=== PATIENT | female | born 1950 | race African-American/Black ===

== ENCOUNTER 2016-08-31 15:44 | Inpatient (IN) | payer MEDICARE ==
[2016-08-31] MEDS ORDERED: IPRATROPIUM-ALBUTEROL 3 ML NEB INHALATION STA (17:04)
--- NOTE | 2016-08-31 17:15 | ED ---
General Adult HPI - General Source: patient, RN notes reviewed Mode of arrival: ambulatory Limitations: no limitations <Pattie Waller - Last Filed: 08/31/16 19:53> <John Adams - Last Filed: 09/01/16 01:36> - General Chief complaint: Upper Respiratory Infection Stated complaint: Cough Time Seen by Provider: 08/31/16 16:57 - History of Present Illness Initial comments: This is a 66-year-old female presents with cough and congestion 4 days. Patient states she's had a productive cough of white-yellow sputum. Patient states she lives in a nursing home apartment center and many residents have been sick with similar symptoms. Patient also complains of some shortness of breath especially with exertion. Patient states she was diagnosed with mild asthma but is not currently on any medications for this. Patient states she only has symptoms when she gets sick. Patient states about 2 days ago she felt like she had a fever but this was subjective. Patient has not tried any over- the-counter remedies. Patient states 2 nights ago she also had a headache but this has not recurred. Patient also complains of some sinus congestion and pressure. Patient denies any recent chest pain, abdominal pain, nausea/vomiting /diarrhea, back pain, numbness, tingling, hematuria, or visual changes, or any other complaints. Patient's past medical history significant for hypertension and removal of the left lung. Patient states there was a nodule on her left lung years ago but patient does not recall the reason for left lung removal. (Pattie Waller) - Related Data Home Medications Medication Instructions Recorded Confirmed Atenolol [Tenormin] 12.5 mg PO DAILY 08/31/16 08/31/16 Lisinopril-Hctz 20-25 mg 1 tab PO DAILY 08/31/16 08/31/16 [Zestoretic 20-25] Potassium Chloride [Klor-Con 10] 10 meq PO DAILY 08/31/16 08/31/16 Previous Rx's Medication Instructions Recorded Albuterol Inhaler [Ventolin Hfa 1 - 2 puff INHALATION Q6HR #1 08/31/16 Inhaler] inhaler Allergies Allergy/AdvReac Type Severity Reaction Status Date / Time No Known Allergies Allergy Verified 08/31/16 19:41 Review of Systems ROS Other: All systems not noted in ROS Statement are negative. <Pattie Waller - Last Filed: 08/31/16 19:53> ROS Other: All systems not noted in ROS Statement are negative. <John Adams - Last Filed: 09/01/16 01:36> ROS Statement: Those systems with pertinent positive or pertinent negative responses have been documented in the HPI. (Pattie Waller) (John Adams) Past Medical History Past Medical History: Asthma History of Any Multi-Drug Resistant Organisms: None Reported Additional Past Surgical History / Comment(s): Left lung removal, cataract surgery Past Psychological History: No Psychological Hx Reported Smoking Status: Former smoker Past Alcohol Use History: None Reported Past Drug Use History: None Reported <Pattie Waller - Last Filed: 08/31/16 19:53> General Exam Limitations: no limitations <Pattie Waller - Last Filed: 08/31/16 19:53> <John Adams - Last Filed: 09/01/16 01:36> - General Exam Comments Initial Comments: General: The patient is awake and alert, in no distress, and does not appear acutely ill. Eye: Pupils are equal, round and reactive to light, extra-ocular movements are intact. No nystagmus. There is normal conjunctiva bilaterally. No signs of icterus. Nose: No tenderness of maxillary or frontal sinuses. Mouth and throat: There are moist mucous membranes and no oral lesions. Neck: The neck is supple, there is no tenderness or JVD. Cardiovascular: There is a regular rate and rhythm. No murmur, rub or gallop is appreciated. Respiratory: Faint wheezes heard on right side, patient with left side lung removed, respirations are non-labored. No stridor, rales, or rhonchi. Musculoskeletal: Normal ROM, no tenderness. Strength 5/5. Sensation intact. Radial pulses equal bilaterally 2+. Neurological: A&O x 3. CN II-XII intact, There are no obvious motor or sensory deficits. Coordination appears grossly intact. Speech is normal. Skin: Skin is warm and dry and no rashes or lesions are noted. Psychiatric: Cooperative, appropriate mood & affect, normal judgment. (Pattie Waller) Medical Decision Making - Lab Data Result diagrams: 08/31/16 19:07 08/31/16 19:07 <Pattie Waller - Last Filed: 08/31/16 19:53> - Lab Data Result diagrams: 08/31/16 19:07 08/31/16 19:07 <John Adams - Last Filed: 09/01/16 01:36> - Medical Decision Making This is a 66-year-old female presents with cough and congestion. On physical exam there were wheezes heard on the right side lung mccord. Patient with left- sided lung removed. Patient does not recall the reason for left-sided lung removal. Patient is afebrile in the EC. Patient is in no acute respiratory distress. Chest x-ray is done and reviewed showing: There is an increasing interstitial infiltrate in the right lung compared to last exam. There is more infiltrate in the right upper lobe. This could relate to developing bronchopneumonia. Reported by Dr. Duke. Patient was given a DuoNeb treatment in the EC with symptom improvement. I discussed patient with Dr. Urbano who also examined the patient. Discussed with patient admission to the hospital for IV antibiotics. Patient was receptive to this plan. Blood cultures, lactic acid, UA, CBC and CMP were ordered. Blood cultures are pending. I discussed this case with attending physician Dr. Adams who agrees with plan as stated above. Patient will be admitted as an inpatient to Dr. Corcoran. (Pattie Waller) I saw this patient in conjunction with the physician hair assistant. I performed independent history and physical exam. Agree with case management. (John Adams) - Lab Data Lab Results 08/31/16 08/31/16 08/31/16 Range/Units 19:07 19:07 19:07 WBC 5.4 (3.8-10.6) k/uL RBC 4.84 (3.80-5.40) m/uL Hgb 14.5 (11.4-16.0) gm/dL Hct 45.1 (34.0-46.0) % MCV 93.3 (80.0-100.0) fL MCH 30.0 (25.0-35.0) pg MCHC 32.2 (31.0-37.0) g/dL RDW 14.1 (11.5-15.5) % Plt Count 103 L (150-450) k/uL Neutrophils % 68 % Lymphocytes % 18 % Monocytes % 6 % Eosinophils % 6 % Basophils % 1 % Neutrophils # 3.7 (1.3-7.7) k/uL Lymphocytes # 1.0 (1.0-4.8) k/uL Monocytes # 0.3 (0-1.0) k/uL Eosinophils # 0.3 (0-0.7) k/uL Basophils # 0.1 (0-0.2) k/uL Sodium 141 (137-145) mmol/L Potassium 3.6 (3.5-5.1) mmol/L Chloride 102 (98-107) mmol/L Carbon Dioxide 31 H (22-30) mmol/L Anion Gap 8 mmol/L BUN 9 (7-17) mg/dL Creatinine 0.80 (0.52-1.04) mg/dL Est GFR (MDRD) Af Amer >60 (>60 ml/min/1.73 sqM) Est GFR (MDRD) Non-Af >60 (>60 ml/min/1.73 sqM) Glucose 100 H (74-99) mg/dL Plasma Lactic Acid Ryan 1.3 (0.7-2.0) mmol/L Calcium 9.3 (8.4-10.2) mg/dL Total Bilirubin 1.4 H (0.2-1.3) mg/dL AST 52 H (14-36) U/L ALT 40 (9-52) U/L Alkaline Phosphatase 95 (38-126) U/L Total Protein 7.9 (6.3-8.2) g/dL Albumin 3.8 (3.5-5.0) g/dL Urine Color Urine Appearance (Clear) Urine pH (5.0-8.0) Ur Specific [place] (1.001-1.035) Urine Protein (Negative) Urine Glucose (UA) (Negative) Urine Ketones (Negative) Urine Blood (Negative) Urine Nitrate (Negative) Urine Bilirubin (Negative) Urine Urobilinogen (<2.0) mg/dL Ur Leukocyte Esterase (Negative) Urine RBC (0-5) /hpf Urine WBC (0-5) /hpf Ur Squamous Epith Cells (0-4) /hpf Urine Bacteria (None) /hpf Urine Mucus (None) /hpf 08/31/ Range/Units 19:07 WBC (3.8-10.6) k/uL RBC (3.80-5.40) m/uL Hgb (11.4-16.0) gm/dL Hct (34.0-46.0) % MCV (80.0-100.0) fL MCH (25.0-35.0) pg MCHC (31.0-37.0) g/dL RDW (11.5-15.5) % Plt Count (150-450) k/uL Neutrophils % % Lymphocytes % % Monocytes % % Eosinophils % % Basophils % % Neutrophils # (1.3-7.7) k/uL Lymphocytes # (1.0-4.8) k/uL Monocytes # (0-1.0) k/uL Eosinophils # (0-0.7) k/uL Basophils # (0-0.2) k/uL Sodium (137-145) mmol/L Potassium (3.5-5.1) mmol/L Chloride (98-107) mmol/L Carbon Dioxide (22-30) mmol/L Anion Gap mmol/L BUN (7-17) mg/dL Creatinine (0.52-1.04) mg/dL Est GFR (MDRD) Af Amer (>60 ml/min/1.73 sqM) Est GFR (MDRD) Non-Af (>60 ml/min/1.73 sqM) Glucose (74-99) mg/dL Plasma Lactic Acid Ryan (0.7-2.0) mmol/L Calcium (8.4-10.2) mg/dL Total Bilirubin (0.2-1.3) mg/dL AST (14-36) U/L ALT (9-52) U/L Alkaline Phosphatase (38-126) U/L Total Protein (6.3-8.2) g/dL Albumin (3.5-5.0) g/dL Urine Color Yellow Urine Appearance Clear (Clear) Urine pH 6.5 (5.0-8.0) Ur Specific [place] 1.004 (1.001-1.035) Urine Protein Negative (Negative) Urine Glucose (UA) Negative (Negative) Urine Ketones Negative (Negative) Urine Blood Small H (Negative) Urine Nitrate Negative (Negative) Urine Bilirubin Negative (Negative) Urine Urobilinogen 2.0 (<2.0) mg/dL Ur Leukocyte Esterase Small H (Negative) Urine RBC 3 (0-5) /hpf Urine WBC 2 (0-5) /hpf Ur Squamous Epith Cells 4 (0-4) /hpf Urine Bacteria Rare H (None) /hpf Urine Mucus Rare H (None) /hpf (John Adams) Disposition Decision Time: 19:53 <Pattie Waller - Last Filed: 08/31/16 19:53> <John Adams - Last Filed: 09/01/16 01:36> Clinical Impression: Pneumonia Disposition: ADMITTED IP TO THIS HOSP Condition: Good
--- NOTE | 2016-08-31 17:55 | XR ---
EXAMINATION TYPE: XR chest 2V DATE OF EXAM: 08/31/2016 5:20 PM COMPARISON: 08/21/2011 HISTORY: Productive cough and congestion TECHNIQUE: Frontal and lateral views of the chest are obtained. FINDINGS: There is apparent pneumonectomy on the left side heart and mediastinum are shifted to the left. There is coarse infiltrate in the right lung. There is no right pleural effusion. IMPRESSION: There is increasing interstitial filtrate in the right lung compared to last exam. There is more infiltrate in the right upper lobe. This could relate to developing bronchopneumonia.
[2016-08-31] MEDS ORDERED: LEVOFLOXACIN 750 MG TAB PO STA (18:05)
[2016-08-31] MEDS ORDERED: LEVOFLOXACIN 750MG-D5W PMX 750 MG in DEXTROSE/WATER 1 150ML.BAG IVPB STA (18:53)
[2016-08-31] MEDS ORDERED: NALOXONE 0.4 MG/ML 1 ML VIAL IV PRN (19:00)
[2016-08-31] MEDS ORDERED: IBUPROFEN 400 MG TAB PO PRN (19:00)
[2016-08-31] MEDS ORDERED: HYDROmorphone 1 MG/ML 1 ML SYRINGE IV PRN (19:00)
[2016-08-31] MEDS ORDERED: HYDROcodone/APAP 5-325MG 1 EACH TAB PO PRN (19:00)
[2016-08-31] MEDS ORDERED: ACETAMINOPHEN TAB 325 MG TAB PO PRN (19:00)
[2016-08-31 19:22] LABS: Basophils # (A) 0.1 k/uL (0-0.2); Basophils % (A) 1 %; CH 31.5; CHCM 33.9; Eosinophils # (A) 0.3 k/uL (0-0.7); Eosinophils % (A) 6 %; HCT 45.1 % (34.0-46.0); HDW 2.98; HGB 14.5 gm/dL (11.4-16.0); Luc # (Auto) 0.09; Luc % (Auto) 2; Lymphocytes % (A) 18 %; MCHC 32.2 g/dL (31.0-37.0); MCV 93.3 fL (80.0-100.0); Mean Platelet Volume 7.7; Monocytes # (A) 0.3 k/uL (0-1.0); Monocytes % (A) 6 %; Neutrophils # (A) 3.7 k/uL (1.3-7.7); Neutrophils % (A) 68 %; RBC 4.84 m/uL (3.80-5.40); RDW 14.1 % (11.5-15.5); WBC 5.4 k/uL (3.8-10.6); WBC (Perox) 5.23
[2016-08-31 19:31] LABS: ALT 40 U/L (9-52); AST 52 U/L (14-36); Alkaline Phosphatase 95 U/L (38-126); Anion Gap 8 mmol/L; Blood Urea Nitrogen 9 mg/dL (7-17); Calcium 9.3 mg/dL (8.4-10.2); Carbon Dioxide 31 mmol/L (22-30); Chloride 102 mmol/L (98-107); Glucose 100 mg/dL (74-99); Non-African American GFR(MDRD) >60 (>60 ml/min/1.73 sqM); Potassium 3.6 mmol/L (3.5-5.1); Sodium 141 mmol/L (137-145); Total Bilirubin 1.4 mg/dL (0.2-1.3); Total Protein 7.9 g/dL (6.3-8.2)
[2016-08-31 19:32] LABS: Appearance,Urine Clear (Clear); Bacteria,Urine Rare /hpf; Bilirubin,Urine Negative (Negative); Glucose,Urine (UA) Negative (Negative); Ketones,Urine Negative (Negative); Leukocyte Esterase,Urine Small (Negative); Mucus,Urine Rare /hpf; Nitrite,Urine Negative (Negative); PH, Urine 6.5 (5.0-8.0); Particle Count 920; Protein,Urine Negative (Negative); RBC,Urine 3 /hpf (0-5); Specific Gravity,Urine 1.004 (1.001-1.035); Squamous Epithelial Cell,Urine 4 /hpf (0-4); UA Billing (MACRO vs. MICRO) MICRO; WBC,Urine 2 /hpf (0-5)
[2016-08-31] MEDS: LEVOFLOXACIN 750MG-D5W PMX 750 MG in DEXTROSE/WATER 1 150ML.BAG IVPB SCH (19:44)
[2016-08-31] MEDS: SODIUM CHLORIDE 0.9% 1,000 ML IV SCH (19:44)
[2016-08-31 22:18] VITALS: BMI 37.4
[2016-09-01 08:02] LABS: ALT 47 U/L (9-52); AST 50 U/L (14-36); Alkaline Phosphatase 88 U/L (38-126); Anion Gap 8 mmol/L; Basophils % (A) 1 %; Blood Urea Nitrogen 10 mg/dL (7-17); CH 30.6; CHCM 33.2; Calcium 8.8 mg/dL (8.4-10.2); Carbon Dioxide 30 mmol/L (22-30); Chloride 106 mmol/L (98-107); Eosinophils # (A) 0.3 k/uL (0-0.7); Eosinophils % (A) 6 %; Glucose 137 mg/dL (74-99); HCT 41.3 % (34.0-46.0); HDW 2.97; HGB 13.6 gm/dL (11.4-16.0); Luc # (Auto) 0.12; Luc % (Auto) 3; Lymphocytes # (A) 0.9 k/uL (1.0-4.8); Lymphocytes % (A) 19 %; MCH 30.4 pg (25.0-35.0); MCHC 32.9 g/dL (31.0-37.0); MCV 92.4 fL (80.0-100.0); Mean Platelet Volume 7.3; Monocytes # (A) 0.2 k/uL (0-1.0); Monocytes % (A) 5 %; Neutrophils # (A) 3.1 k/uL (1.3-7.7); Neutrophils % (A) 67 %; Non-African American GFR(MDRD) >60 (>60 ml/min/1.73 sqM); Potassium 3.7 mmol/L (3.5-5.1); RBC 4.47 m/uL (3.80-5.40); RDW 13.8 % (11.5-15.5); Sodium 144 mmol/L (137-145); Total Bilirubin 1.5 mg/dL (0.2-1.3); Total Protein 7.3 g/dL (6.3-8.2); WBC 4.6 k/uL (3.8-10.6); WBC (Perox) 5.03
[2016-09-01] MEDS: LISINOPRIL-HCTZ 20-25 MG 1 EACH TAB PO SCH (08:24)
[2016-09-01] MEDS: POTASSIUM CHLORIDE ER 10 MEQ TAB.ER.PRT PO SCH (08:24)
[2016-09-01] MEDS: ATENOLOL 12.5 MG TAB PO SCH (08:24)
[2016-09-01] MEDS: LEVOFLOXACIN 750MG-D5W PMX 750 MG in DEXTROSE/WATER 1 150ML.BAG IVPB SCH (08:27)
[2016-09-01 10:51] LABS: Manual Review Performed; RBC Morphology Normal
--- NOTE | 2016-09-01 13:54 | P.CNPUL ---
History of Present Illness Consult date: 09/01/16 Requesting physician: Franki Corcoran Reason for consult: other (Pneumonia) Chief complaint: Cough and shortness of breath History of present illness: This is a 66-year-old with history of lung cancer, previous left-sided pneumonectomy over 20 years ago. And this was done by Dr. Malloy/retired thoracic surgeon. Patient is also known to have history of hypertension, COPD, presented to the emergency room with 4 days history of cough and congestion. Cough is described as productive with yellowish and sometimes whitish phlegm. Patient felt that she may have picked up this infection from other senior citizens living in the same apartment center who had similar symptoms. Patient was also complaining of shortness of breath, and upon presentation to the ER patient had abnormal chest x-rays showing some nodular infiltrate in the right lung and clearly she had a previous left-sided pneumonectomy. Her chest x-ray compared to previous x-ray few years back, clearly the findings in the right lung are worrisome for possible pneumonia. Hence the patient was admitted, placed on antibiotics, and this consult was initiated. Other symptoms included intermittent headaches, congestion over the sinuses, but she had no fever no chills no chest pain no nausea no vomiting no abdominal pain no dysuria frequency. Urgency or hematuria. Review of Systems 12 point review of systems were obtained, please refer to pertinent positives and negatives in HPI Past Medical History Past Medical History: Asthma, COPD History of Any Multi-Drug Resistant Organisms: None Reported Additional Past Surgical History / Comment(s): Left lung removal, cataract surgery Past Anesthesia/Blood Transfusion Reactions: No Reported Reaction Past Psychological History: No Psychological Hx Reported Smoking Status: Former smoker Past Alcohol Use History: None Reported Past Drug Use History: None Reported - Past Family History Father Family Medical History: Hypertension Additional Family Medical History / Comment(s): pt states father had heart problems but unsure of what exactly, ETOH, cirrhosis Mother Family Medical History: Hypertension Medications and Allergies Home Medications Medication Instructions Recorded Confirmed Type Atenolol [Tenormin] 12.5 mg PO DAILY 08/31/16 08/31/16 History Lisinopril-Hctz 20-25 mg 1 tab PO DAILY 08/31/16 08/31/16 History [Zestoretic 20-25] Potassium Chloride [Klor-Con 10] 10 meq PO DAILY 08/31/16 08/31/16 History Allergies Allergy/AdvReac Type Severity Reaction Status Date / Time No Known Allergies Allergy Verified 08/31/16 19:41 Physical Exam Vitals: Vital Signs Temp Pulse Pulse Resp BP BP Pulse Ox 09/01/16 08:00 69 18 09/01/16 07:00 69 18 124/62 98 08/31/16 22:02 98.3 F 78 18 136/64 99 08/31/16 19:47 98.0 F 70 18 144/65 97 Intake and Output 08/31/16 09/01/16 09/01/16 22:59 06:59 14:59 Intake Total 280 240 Balance 280 240 Intake: IV 80 Sodium Chloride 0.9% 1, 80 000 ml @ 20 mls/hr IV . Q24H GUAD[facility]UPE Rx#:[id number] Oral 200 240 Other: Voiding Method Toilet Toilet # Voids 1 2 Weight 99 kg eneral: The patient is awake and alert, in no distress, and does not appear acutely ill. Eye: Pupils are equal, round and reactive to light, extra-ocular movements are intact. No nystagmus. There is normal conjunctiva bilaterally. No signs of icterus. Nose: No tenderness of maxillary or frontal sinuses. Mouth and throat: There are moist mucous membranes and no oral lesions. Neck: The neck is supple, there is no tenderness or JVD. Cardiovascular: There is a regular rate and rhythm. No murmur, rub or gallop is appreciated. Respiratory: Faint wheezes heard on right side, patient with left side lung removed, respirations are non-labored. No stridor, rales, or rhonchi. Musculoskeletal: Normal ROM, no tenderness. Strength 5/5. Sensation intact. Radial pulses equal bilaterally 2+. Neurological: A&O x 3. CN II-XII intact, There are no obvious motor or sensory deficits. Coordination appears grossly intact. Speech is normal. Skin: Skin is warm and dry and no rashes or lesions are noted. Psychiatric: Cooperative, appropriate mood & affect, normal judgment. Results - Laboratory Findings CBC and BMP: 09/01/16 06:52 09/01/16 06:52 Abnormal lab findings: Abnormal Labs 09/01/16 09/01/16 06:52 06:52 Plt Count 95 L Lymphocytes # 0.9 L Glucose 137 H Total Bilirubin 1.5 H AST 50 H - Diagnostic Findings Chest x-ray: image reviewed (Right sided interstitial infiltrate is noted, mostly involving the right upper lobe, consistent with bronchopneumonia.) Assessment and Plan Plan: Acute community-acquired pneumonia in a patient with history of COPD, it is most likely gram-negative infection. Acute exacerbation of underlying COPD secondary to pneumonia History of lung cancer and previous left sided pneumonectomy History of essential hypertension Recommendation: Continue present course of antibiotics and/Levaquin, continue bronchodilators, I will recommend a course of Medrol Dosepak for her COPD symptoms, repeat chest x-ray in a.m., and the patient looks well, chest x-ray not showing any worsening, consider discharge planning in a.m. Time with Patient: Greater than 30
[2016-09-01] MEDS: methylPREDNISolone 4 MG TAB PO SCH (15:29)
[2016-09-02] MEDS: SODIUM CHLORIDE 0.9% 1,000 ML IV SCH ×2 (04:59→07:54)
[2016-09-02 07:46] VITALS: BP 131/66; PULSE 60; RESP 18; TEMP 97
[2016-09-02] MEDS: POTASSIUM CHLORIDE ER 10 MEQ TAB.ER.PRT PO SCH (07:53)
[2016-09-02] MEDS: ATENOLOL 12.5 MG TAB PO SCH (07:53)
[2016-09-02] MEDS: LISINOPRIL-HCTZ 20-25 MG 1 EACH TAB PO SCH (07:53)
[2016-09-02] MEDS: methylPREDNISolone 4 MG TAB PO SCH (07:53)
--- NOTE | 2016-09-02 07:55 | XR ---
EXAMINATION TYPE: XR chest 1V portable DATE OF EXAM: 09/02/2016 6:45 AM Comparison: 08/31/2016 Clinical History: 66-year-old female pneumonia, history of lung cancer and left-sided surgery in the past. Findings: There is leftward cardiomediastinal shift suspected to be on the basis of prior left-sided pneumonect garth. Diffuse interstitial densities on the right with increased peripheral right basilar opacity. Impression: New/worsening right basilar infiltrate. Pneumonia not excluded. Suspect prior left pneumonectomy.
--- NOTE | 2016-09-02 10:39 | HP ---
DATE OF ADMISSION: DATE OF SERVICE: 09/01/2016 CHIEF COMPLAINT: Shortness of breath and fever. This is a 66-year-old female who presented to hospital with worsening shortness of breath and fever and chills. The patient states it was a high fever but not sure how high at home. The patient was having chills and having productive cough for yellowish, stated today starting to be greenish. No blood noticed in the sputum. The patient stated that she is having generalized weakness. Positive for sick contact. Patient with history of left-sided pneumonectomy over [address] Malloy who is a retired thoracic surgeon in the early . The patient states that at that time she had possibly lung cancer but that was small size and required no chemo or radiation at that time and they told her that treatment was completed by doing the resection. Patient is alert and oriented x3, saying that she is at least 25 to 50% improved since admission. No major events reported by nursing staff. Currently denying chest pain, nausea, vomiting, abdominal pain, dizziness, ( ) or blurry vision. REVIEW OF SYSTEMS: All 14 systems reviewed and negative except as above. PAST MEDICAL HISTORY: 1. Lung cancer. 2. Hypertension. 3. Cataract surgery. 4. Left lung pneumonectomy. SOCIAL HISTORY: Patient former smoker, quit a long time ago. No history of alcohol or drug abuse. HOME MEDICATIONS: Atenolol 12.5 mg p.o. daily, lisinopril, Hypochlorothiazide on p.o. daily, potassium chloride p.o. daily. ALLERGIES: No known drug allergies. FAMILY HISTORY: Reviewed and negative. PHYSICAL EXAMINATION: VITAL SIGNS: Blood pressure 134/62, temperature is 98.3, heart rate of 69, respiratory rate 18, sating 98% on room air. GENERAL: Appearing stated age, in no acute distress. NECK: Supple, no masses. No thyromegaly. HEART: Normal S1, S2. No murmur, rubs, or gallops. LUNGS: Decreased air entry on the left side. No wheezing appreciated on physical examination. NEURO: Alert and oriented x3 and relaxed mood and affect. Cranial nerves II through XII intact. Normal deep tendon reflexes and sensation. SKIN: No new rash. PSYCH: Alert and oriented, x3. Imaging and labs: Her CBC showed low platelets at 95, normal otherwise. Chem-7 showed glucose at 137, normal otherwise. AST slightly elevated at 50. Chest x-ray showed right-sided interstitial infiltrates also involving the right upper lobe consistent with bronchopneumonia. ASSESSMENT AND PLAN: 1. Fever and chills with productive cough along with chest x-ray findings representing community-acquired pneumonia. The patient is a high risk patient given the history of left pneumonectomy and functioning with one lung, I would like to keep the patient in the hospital, consider treating her with IV antibiotics until the patient is at least 80% back to baseline. I would like to consult pulmonary and follow-up with their recommendation regarding treatment plan. 2. Generalized weakness related to the above. 3. Dehydration. We will continue with gentle hydration, encourage p.o. intake. Likely related to fever and pneumonia. 4. History of lung cancer, status post pneumonectomy, patient in remission. No chemo or radiation in the past, 5. Hypertension, under good control. We will continue the patient on her home medication. 6. Discharge planning ( ) progress. Will repeat the chest x-ray in the morning. Consider discharging patient home. 7. Thrombocytopenia, mild and we will repeat CBC in the morning. Plan discussed with Dr. Carolina at the bedside.
--- NOTE | 2016-09-02 14:14 | P.PN ---
Subjective Principal diagnosis: Acute right-sided pneumonia, community-acquired This is a 66-year-old with history of lung cancer, previous left-sided pneumonectomy over 20 years ago. And this was done by Dr. Malloy/retired thoracic surgeon. Patient is also known to have history of hypertension, COPD, presented to the emergency room with 4 days history of cough and congestion. Cough is described as productive with yellowish and sometimes whitish phlegm. Patient felt that she may have picked up this infection from other senior citizens living in the same apartment center who had similar symptoms. Patient was also complaining of shortness of breath, and upon presentation to the ER patient had abnormal chest x-rays showing some nodular infiltrate in the right lung and clearly she had a previous left-sided pneumonectomy. Her chest x-ray compared to previous x-ray few years back, clearly the findings in the right lung are worrisome for possible pneumonia. Hence the patient was admitted, placed on antibiotics, and this consult was initiated. Other symptoms included intermittent headaches, congestion over the sinuses, but she had no fever no chills no chest pain no nausea no vomiting no abdominal pain no dysuria frequency. Urgency or hematuria. Patient was reevaluated today on 09/02/2016, feeling better, breathing easier, continues to have intermittent episodes of cough, productive with slightly yellow phlegm but no hemoptysis no chest pain, no shortness of breath. Continues to have relatively normal CBC. And normal basic metabolic profile. Objective - Vital Signs Vital signs: Vital Signs Temp 97.0 F L 09/02/16 07:00 Pulse 60 09/02/16 07:00 Resp 18 09/02/16 07:00 BP 131/66 09/02/16 07:00 Pulse Ox 95 09/02/16 07:00 Intake & Output 09/01/16 09/02/16 09/02/16 18:59 06:59 18:59 Intake Total 200 520 Balance 200 520 Intake: IV 240 Sodium Chloride 0.9% 1, 240 000 ml @ 20 mls/hr IV . Q24H [facility] Rx#:[id number] Oral 200 280 Other: Voiding Method Toilet Toilet Toilet # Voids 1 - Exam Physical Exam: Revealed a 66-year-old female in no distress HEENT:[Neck is supple.] [No neck masses.] [No thyromegaly.] [No JVD.] Chest: [Crackles at the right base, left side is diminished] Cardiac Exam: [Normal S1 and S2, no S3 gallop, no murmur.] Abdomen: [Soft, nontender, no megaly, no rebound, no guarding, normal bowel sounds.] Extremities: [No clubbing, no edema, no cyanosis.] Neurological Exam: [No focal neurologic deficit.] - Labs CBC & Chem 7: 09/01/16 06:52 09/01/16 06:52 Assessment and Plan Plan: Acute community-acquired pneumonia in a patient with history of COPD, it is most likely gram-negative infection. Acute exacerbation of underlying COPD secondary to pneumonia History of lung cancer and previous left sided pneumonectomy History of essential hypertension Recommendation: Continue present course of antibiotics and/Levaquin, continue bronchodilators, patient could be considered for discharge home today, continue Levaquin, placed on a course of prednisone burst and taper over 2 weeks, reevaluate in my office in 3 days Time with Patient: Less than 30
--- NOTE | 2016-09-02 16:27 | DS ---
DATE OF ADMISSION: 08/31/2016 DATE OF DISCHARGE: 09/02/2016 ADMITTING DIAGNOSES: 1. Pneumonia. 2. Hypertension. 3. Hyperlipidemia. 4. Status post pneumonectomy. DISCHARGED DIAGNOSES 1. Pneumonia. 2. Hypertension. 3. Hyperlipidemia. 4. Status post pneumonectomy. HOSPITAL COURSE: This 66-year-old -[place] female with history of pneumonectomy on the left more than 20 years ago, presents to the hospital with worsening shortness of breath and productive cough. Patient's initial evaluation revealed infiltrate changes on the chest x-ray associated with subjective fever that patient reported at home. Patient felt to have community-acquired pneumonia, was started on Levaquin, improved dramatically and felt stable from the medical standpoint for discharge. I discussed the case with Dr. Carolina from pulmonary, who felt that the patient is stable for discharge to follow up with him in the office in 7 days. Patient was discharged in stable condition and advised to follow up with her primary care physician and Dr. Carolina on scheduled appointment. DISCHARGE PROCESS: 35 minutes.
== END 2016-09-02 14:45 | disposition home or self-care (01) | DRG 190 ==
LOC: EC 15:44 → 5MS5E 19:13
PROVIDERS: ADMIT Internal Medicine; ATTEND Internal Medicine
DX: J44.0 Chronic obstructive pulmonary disease with (acute) lower respiratory infection (principal); J15.6 Pneumonia due to other Gram-negative bacteria; D69.6 Thrombocytopenia, unspecified; E86.0 Dehydration; J44.1 Chronic obstructive pulmonary disease with (acute) exacerbation; I10 Essential (primary) hypertension; E78.5 Hyperlipidemia, unspecified; J45.909 Unspecified asthma, uncomplicated; Z98.49 Cataract extraction status, unspecified eye; Z90.2 Acquired absence of lung [part of]; Z87.891 Personal history of nicotine dependence; Z85.118 Personal history of other malignant neoplasm of bronchus and lung; Z79.899 Other long term (current) drug therapy
CPT/HCPCS: 36415; 71010; 71020; 80053; 81001; 83605; 85025; 87040; 94640; 99285

== ENCOUNTER 2016-12-02 01:36 | Emergency (ER) | payer MEDICARE ==
[2016-12-02 01:55] VITALS: TEMP 99.5
--- NOTE | 2016-12-02 02:24 | ED ---
SOB HPI - General Chief Complaint: Shortness of Breath Stated Complaint: cough, vito Time Seen by Provider: 12/02/16 02:06 Source: patient, family Mode of arrival: ambulatory Limitations: no limitations - History of Present Illness Initial Comments: This patient is a 66-year-old woman who presents to be evaluated for cough, some mild shortness of breath, and substernal pain with cough. Patient states that the symptoms have been going on for about a week. She has had some yellowish sputum. The patient denies zahraa chest pain, orthopnea, hemoptysis, change in urination, leg pain or swelling, dark tarry stools or bloody bowel movements. MD Complaint: shortness of breath, cough Onset/Timin -: week(s) Severity: mild Quality: burning Consistency: other (With cough) Improves With: nothing Worsens With: coughing Known History Of: other (Remote history of lung cancer with left lung resection) Associated Symptoms: cough, sputum production - Related Data Home Medications Medication Instructions Recorded Confirmed Atenolol [Tenormin] 12.5 mg PO DAILY 08/31/16 12/02/16 Lisinopril-Hctz 20-25 mg 1 tab PO DAILY 08/31/16 12/02/16 [Zestoretic 20-25] Potassium Chloride [Klor-Con 10] 10 meq PO DAILY 08/31/16 12/02/16 Previous Rx's Medication Instructions Recorded Albuterol Inhaler [Ventolin Hfa 1 - 2 puff INHALATION Q6HR #1 08/31/16 Inhaler] inhaler Albuterol Inhaler [Ventolin Hfa 1 - 2 puff INHALATION Q6HR PRN #1 12/02/16 Inhaler] inhaler Azithromycin [Zithromax Z-pack] 250 mg PO DIRECTED #6 tab 12/02/16 predniSONE 20 mg PO BID #8 tab 12/02/16 Allergies Allergy/AdvReac Type Severity Reaction Status Date / Time No Known Allergies Allergy Verified 12/02/16 01:55 Review of Systems ROS Statement: Those systems with pertinent positive or pertinent negative responses have been documented in the HPI. ROS Other: All systems not noted in ROS Statement are negative. Constitutional: Denies: fever, chills, weakness Respiratory: Reports: cough. Denies: dyspnea, wheezes, hemoptysis Cardiovascular: Denies: orthopnea, edema Gastrointestinal: Denies: abdominal pain, vomiting, diarrhea Genitourinary: Denies: dysuria, hematuria Musculoskeletal: Denies: back pain Skin: Denies: rash Neurological: Denies: headache, weakness Past Medical History Past Medical History: Asthma, COPD History of Any Multi-Drug Resistant Organisms: None Reported Additional Past Surgical History / Comment(s): Left lung removal, cataract surgery Past Anesthesia/Blood Transfusion Reactions: No Reported Reaction Past Psychological History: No Psychological Hx Reported Smoking Status: Former smoker Past Alcohol Use History: None Reported Past Drug Use History: None Reported - Past Family History Father Family Medical History: Hypertension Additional Family Medical History / Comment(s): pt states father had heart problems but unsure of what exactly, ETOH, cirrhosis Mother Family Medical History: Hypertension General Exam Limitations: no limitations General appearance: alert, in no apparent distress Head exam: Present: atraumatic, normocephalic Eye exam: Present: normal appearance Respiratory exam: Present: wheezes, other (Decreased breath sounds on the left and dullness to percussion on the left). Absent: respiratory distress, rales, rhonchi, stridor Cardiovascular Exam: Present: regular rate, normal rhythm, normal heart sounds. Absent: systolic murmur, diastolic murmur, rubs, gallop GI/Abdominal exam: Present: soft. Absent: distended, tenderness, guarding, rebound Extremities exam: Absent: pedal edema, calf tenderness Back exam: Absent: CVA tenderness (R), CVA tenderness (L) Skin exam: Present: warm, dry, intact, normal color. Absent: rash Course Vital Signs 12/02/16 12/02/16 12/02/16 01:51 03:17 03:23 Temperature 99.5 F Pulse Rate 90 88 88 Respiratory 18 Rate Blood Pressure 146/88 O2 Sat by Pulse 95 Oximetry 12/02/16 12/02/16 12/02/16 04:56 05:03 05:07 Temperature Pulse Rate 84 84 78 Respiratory 16 Rate Blood Pressure 125/70 O2 Sat by Pulse 93 L Oximetry Medical Decision Making - Lab Data Result diagrams: 12/02/16 02:14 12/02/16 02:14 Lab Results 12/02/16 12/02/16 12/02/16 Range/Units 02:14 02:14 02:14 WBC 6.2 (3.8-10.6) k/uL RBC 4.93 (3.80-5.40) m/uL Hgb 15.2 (11.4-16.0) gm/dL Hct 45.0 (34.0-46.0) % MCV 91.4 (80.0-100.0) fL MCH 30.8 (25.0-35.0) pg MCHC 33.7 (31.0-37.0) g/dL RDW 14.4 (11.5-15.5) % Plt Count 125 L (150-450) k/uL Neutrophils % 68 % Lymphocytes % 19 % Monocytes % 6 % Eosinophils % 5 % Basophils % 1 % Neutrophils # 4.3 (1.3-7.7) k/uL Lymphocytes # 1.2 (1.0-4.8) k/uL Monocytes # 0.4 (0-1.0) k/uL Eosinophils # 0.3 (0-0.7) k/uL Basophils # 0.0 (0-0.2) k/uL D-Dimer 0.48 (<0.60) mg/L FEU Sodium 143 (137-145) mmol/L Potassium 3.5 (3.5-5.1) mmol/L Chloride 102 (98-107) mmol/L Carbon Dioxide 32 H (22-30) mmol/L Anion Gap 9 mmol/L BUN 11 (7-17) mg/dL Creatinine 0.80 (0.52-1.04) mg/dL Est GFR (MDRD) Af Amer >60 (>60 ml/min/1.73 sqM) Est GFR (MDRD) Non-Af >60 (>60 ml/min/1.73 sqM) Glucose 88 (74-99) mg/dL Calcium 9.5 (8.4-10.2) mg/dL Total Bilirubin 1.9 H (0.2-1.3) mg/dL AST 54 H (14-36) U/L ALT 31 (9-52) U/L Alkaline Phosphatase 88 (38-126) U/L Troponin I (0.000-0.034) ng/mL NT-Pro-B Natriuret Pep pg/mL Total Protein 8.0 (6.3-8.2) g/dL Albumin 3.9 (3.5-5.0) g/dL 12/02/16 12/02/16 Range/Units 02:14 02:14 WBC (3.8-10.6) k/uL RBC (3.80-5.40) m/uL Hgb (11.4-16.0) gm/dL Hct (34.0-46.0) % MCV (80.0-100.0) fL MCH (25.0-35.0) pg MCHC (31.0-37.0) g/dL RDW (11.5-15.5) % Plt Count (150-450) k/uL Neutrophils % % Lymphocytes % % Monocytes % % Eosinophils % % Basophils % % Neutrophils # (1.3-7.7) k/uL Lymphocytes # (1.0-4.8) k/uL Monocytes # (0-1.0) k/uL Eosinophils # (0-0.7) k/uL Basophils # (0-0.2) k/uL D-Dimer (<0.60) mg/L FEU Sodium (137-145) mmol/L Potassium (3.5-5.1) mmol/L Chloride (98-107) mmol/L Carbon Dioxide (22-30) mmol/L Anion Gap mmol/L BUN (7-17) mg/dL Creatinine (0.52-1.04) mg/dL Est GFR (MDRD) Af Amer (>60 ml/min/1.73 sqM) Est GFR (MDRD) Non-Af (>60 ml/min/1.73 sqM) Glucose (74-99) mg/dL Calcium (8.4-10.2) mg/dL Total Bilirubin (0.2-1.3) mg/dL AST (14-36) U/L ALT (9-52) U/L Alkaline Phosphatase (38-126) U/L Troponin I <0.012 (0.000-0.034) ng/mL NT-Pro-B Natriuret Pep 125 pg/mL Total Protein (6.3-8.2) g/dL Albumin (3.5-5.0) g/dL - EKG Data -: EKG Interpreted by Pa EKG shows normal: sinus rhythm (Rate 88 bpm), axis (Normal), QRS complexes ( Normal) Interpretation: nonspecific ST-T wave changes, other (Prolonged QTC at 496 ms) Disposition Clinical Impression: Acute bronchitis Disposition: HOME SELF-CARE Condition: Fair Instructions: Acute Bronchitis (ED) Prescriptions: Albuterol Inhaler [Ventolin Hfa Inhaler] 1 - 2 puff INHALATION Q6HR PRN #1 inhaler PRN Reason: Wheezing Azithromycin [Zithromax Z-pack] 250 mg PO DIRECTED #6 tab predniSONE 20 mg PO BID #8 tab Referrals: Sarah Helms MD [Primary Care Provider] - 1-2 days
[2016-12-02] MEDS ORDERED: predniSONE 20 MG TAB PO STA (03:08)
[2016-12-02] MEDS ORDERED: IPRATROPIUM-ALBUTEROL 3 ML NEB INHALATION STA (03:08)
[2016-12-02 03:20] LABS: Basophils % (A) 1 %; CH 30.6; CHCM 33.6; Eosinophils # (A) 0.3 k/uL (0-0.7); Eosinophils % (A) 5 %; HDW 2.97; HGB 15.2 gm/dL (11.4-16.0); Luc # (Auto) 0.13; Luc % (Auto) 2; Lymphocytes # (A) 1.2 k/uL (1.0-4.8); Lymphocytes % (A) 19 %; MCH 30.8 pg (25.0-35.0); MCHC 33.7 g/dL (31.0-37.0); MCV 91.4 fL (80.0-100.0); Mean Platelet Volume 7.8; Monocytes # (A) 0.4 k/uL (0-1.0); Monocytes % (A) 6 %; Neutrophils # (A) 4.3 k/uL (1.3-7.7); Neutrophils % (A) 68 %; RBC 4.93 m/uL (3.80-5.40); RDW 14.4 % (11.5-15.5); WBC 6.2 k/uL (3.8-10.6); WBC (Perox) 6.37
[2016-12-02 03:31] LABS: ALT 31 U/L (9-52); AST 54 U/L (14-36); Alkaline Phosphatase 88 U/L (38-126); Anion Gap 9 mmol/L; Blood Urea Nitrogen 11 mg/dL (7-17); Calcium 9.5 mg/dL (8.4-10.2); Carbon Dioxide 32 mmol/L (22-30); Chloride 102 mmol/L (98-107); Glucose 88 mg/dL (74-99); Non-African American GFR(MDRD) >60 (>60 ml/min/1.73 sqM); Potassium 3.5 mmol/L (3.5-5.1); Sodium 143 mmol/L (137-145); Total Bilirubin 1.9 mg/dL (0.2-1.3)
[2016-12-02] MEDS ORDERED: AZITHROMYCIN 500 MG TAB PO STA (03:56)
--- NOTE | 2016-12-02 04:26 | XR ---
EXAM:Chest PA and lateral views INDICATION: 66-year-old female with difficulty breathing. History of remote left lung cancer status post pneumonectomy. COMPARISON: Chest radiograph 09/28/2016. FINDINGS: PA and lateral views of the chest are obtained. The cardiomediastinal silhouette is stable. Stable appearance of the left hemithorax with complete opacification and surgical clips. Associated volume loss with elevation left hemidiaphragm. There are prominent chronic interstitial lung markings throughout the right lung with associated hyperinflation and flattening of the right hemidiaphragm. Emphysematous changes are noted in the right lung, most marked in the right lung apex. Osseous structures appear intact. Upper abdomen is unremarkable. IMPRESSION: Stable appearance of the chest without acute abnormality.
[2016-12-02] MEDS ORDERED: ALBUTEROL NEBULIZED 2.5 MG/3 ML INHALATION STA (04:45)
[2016-12-02 05:12] VITALS: BP 125/70; PULSE 78; RESP 16
== END 2016-12-02 05:12 | disposition home or self-care (01) ==
LOC: EC 01:36
DX: J20.9 Acute bronchitis, unspecified (principal); J44.0 Chronic obstructive pulmonary disease with (acute) lower respiratory infection; J45.909 Unspecified asthma, uncomplicated; Z87.891 Personal history of nicotine dependence; Z85.118 Personal history of other malignant neoplasm of bronchus and lung; Z79.899 Other long term (current) drug therapy
CPT/HCPCS: 99285; 96365; 36415; 94640 ×2; 93005; 85379; 83880; 80053; 84484; 85025; 71020; J0696; J7512

== ENCOUNTER → 2018-02-15 | Outpatient (CLI) | payer MEDICARE ==
--- NOTE | 2018-02-16 11:50 | CT ---
EXAMINATION TYPE: CT chest wo con DATE OF EXAM: 02/15/2018 COMPARISON: NONE HISTORY: Interstitial Lung Disease CT DLP: 385.40 mGycm. Automated Exposure Control for Dose Reduction was Utilized. TECHNIQUE: CT scan of the thorax is performed without IV contrast. FINDINGS: LUNGS: There is complete loss of volume of the left hemithorax correlate for previous pneumonectomy. No pneumothorax or pleural effusion. There is interlobular septal thickening throughout the all lobes of the lungs with peripheral paraseptal emphysematous changes. Our groundglass areas of infiltrate a re seen involving the right lower lobe. There is a irregular density within the anterior segment mercy uring 2.0 x 1.0 cm for which a standard CT of the chest is recommended. Postsurgical changes are noted and there is basilar bronchiectasis. MEDIASTINUM: Lack of IV contrast is noted to limit evaluation for mediastinal and especially hilar ad enopathy. There are no definitive greater than 1 cm hilar or mediastinal lymph nodes. Atherosclerotic changes aorta. Small pericardial effusion. OTHER: No bladder is enlarged and there appears to be large gallstone. Hypertrophic and degenerative change of the spine noted.. IMPRESSION: 1. There is findings suggestive of a left pneumonectomy. 2. Correlate for chronic interstitial pulmonary fibrosis. 3. A more confluent density in the right lower lobe may be related to superimposed pneumonitis. Irreg ular 2 x 1 cm density in the anterior segment may be related to scar but follow up CT scan of the [address] st is recommended to exclude mass. Standard 4. gallbladder hydrops with cholelithiasis. This is only partially included and should be correlated with CT of the abdomen
== END | disposition home or self-care (01) ==
LOC: RADCTMAIN 08:35
PROVIDERS: ATTEND Internal Medicine
DX: J84.9 Interstitial pulmonary disease, unspecified (principal)
CPT/HCPCS: 71250

== ENCOUNTER 2021-07-21 01:25 | Inpatient (IN) | payer MEDICARE ==
[2021-07-21 01:37] VITALS: TEMP 97.6
[2021-07-21] MEDS: SODIUM CHLORIDE 0.9% 500 ML 500 ML IV SCH ×2 (02:01→03:15)
[2021-07-21 02:07] LABS: Basophils % (A) 0 %; Eosinophils % (A) 0 %; HCT 52.4 % (34.0-46.0); HGB 16.1 gm/dL (11.4-16.0); Hypochromasia Marked; Lymphocytes # (A) 0.3 k/uL (1.0-4.8); Lymphocytes % (A) 3 %; MCH 30.4 pg (25.0-35.0); MCHC 30.6 g/dL (31.0-37.0); MCV 99.1 fL (80.0-100.0); Macrocytosis Slight; Mean Platelet Volume 8.5; Monocytes # (A) 0.5 k/uL (0-1.0); Monocytes % (A) 5 %; Neutrophils # (A) 7.9 k/uL (1.3-7.7); Neutrophils % (A) 90 %; Platelet Count 107 k/uL (150-450); RBC 5.29 m/uL (3.80-5.40); RDW 15.7 % (11.5-15.5); WBC 8.9 k/uL (3.8-10.6)
--- NOTE | 2021-07-21 02:25 | CT ---
EXAMINATION TYPE: CT brain wo con DATE OF EXAM: 07/21/2021 COMPARISON: None HISTORY: ams CT DLP: 1072.4 mGycm Automated exposure control for dose reduction was used. There is mild cerebral atrophy. There is no mass effect nor midline shift. There is no sign of intrac ranial hemorrhage. The calvarium is intact. IMPRESSION: Mild atrophy. No acute intracranial abnormality.
--- NOTE | 2021-07-21 02:27 | XR ---
EXAMINATION TYPE: XR chest 1V portable DATE OF EXAM: 07/21/2021 COMPARISON: 02/12/2018 HISTORY: Fever TECHNIQUE: Single view FINDINGS: There is opacification left hemithorax apparently from left pneumonectomy. Heart is shifted to the left side. There is extensive coarse infiltrate in the right lung. IMPRESSION: Diffuse right-sided pulmonary infiltrates appear not significantly different than old exa m. There is probably a significant component of pulmonary fibrosis.
[2021-07-21 02:39] LABS: INR 1.7 (<1.2); Partial Thromboplastin Time 28.6 sec (22.0-30.0); Prothrombin Time 17.2 sec (9.0-12.0)
--- NOTE | 2021-07-21 03:11 | ED ---
SOB HPI - General Chief Complaint: Shortness of Breath Stated Complaint: SARWAT Time Seen by Provider: 07/21/21 01:30 Source: patient, EMS Mode of arrival: EMS Limitations: altered mental status - History of Present Illness Initial Comments: This patient is 71-year-old woman brought here by and noticed to be evaluated for altered mental status, cough, sore throat. The patient is not able to give much history. She appears delirious. The patient's son states that she had started complaining of little bit of sore throat and cough about a week ago and has been seeming to be progressively more sick, also becoming disoriented and confused. He states that today she was too sick to resist to come to the hospital. MD Complaint: shortness of breath Onset/Timin -: week(s) - Related Data Home Medications Medication Instructions Recorded Confirmed Lisinopril-Hctz 20-25 mg 1 tab PO DAILY 08/31/16 12/02/16 [Zestoretic 20-25] Potassium Chloride [Klor-Con 10] 10 meq PO DAILY 08/31/16 12/02/16 atenoloL [Tenormin] 12.5 mg PO DAILY 08/31/16 12/02/16 Previous Rx's Medication Instructions Recorded Albuterol Inhaler (Mhu) [Ventolin 1 - 2 puff INHALATION Q6HR #1 08/31/16 Hfa Inhaler (Mhu)] inhaler Albuterol Inhaler (Mhu) [Ventolin 1 - 2 puff INHALATION Q6HR PRN #1 12/02/16 Hfa Inhaler (Mhu)] inhaler Azithromycin [Zithromax Z-pack (6 250 mg PO DIRECTED #6 tab 12/02/16 tabs)] predniSONE [Deltasone] 20 mg PO BID #8 tab 12/02/16 Allergies Allergy/AdvReac Type Severity Reaction Status Date / Time No Known Allergies Allergy Verified 12/02/16 01:55 Review of Systems ROS Statement: Those systems with pertinent positive or pertinent negative responses have been documented in the HPI. ROS Other: All systems not noted in ROS Statement are negative. Limitations: ROS unobtainable due to patients medical condition Constitutional: Reports: weakness ENT: Reports: throat pain Respiratory: Reports: cough, dyspnea Past Medical History Past Medical History: Asthma, COPD, Hypertension History of Any Multi-Drug Resistant Organisms: None Reported Additional Past Surgical History / Comment(s): Left lung removal, cataract surgery Past Anesthesia/Blood Transfusion Reactions: No Reported Reaction Past Psychological History: No Psychological Hx Reported Smoking Status: Unknown if ever smoked Past Alcohol Use History: None Reported Past Drug Use History: None Reported - Past Family History Father Family Medical History: Hypertension Additional Family Medical History / Comment(s): pt states father had heart problems but unsure of what exactly, ETOH, cirrhosis Mother Family Medical History: Hypertension General Exam Limitations: no limitations General appearance: obtunded Head exam: Present: atraumatic, normocephalic Eye exam: Present: normal appearance. Absent: scleral icterus, conjunctival injection ENT exam: Present: mucous membranes dry Neck exam: Present: full ROM. Absent: meningismus Respiratory exam: Present: normal lung sounds bilaterally. Absent: respiratory distress, wheezes, rales, rhonchi, stridor Cardiovascular Exam: Present: regular rate, systolic murmur. Absent: diastolic murmur, rubs, gallop GI/Abdominal exam: Present: soft. Absent: distended, tenderness, guarding, rebound, rigid, mass Extremities exam: Present: normal inspection, normal capillary refill. Absent: pedal edema, calf tenderness Back exam: Present: normal inspection Neurological exam: Present: alert Skin exam: Present: warm, dry, intact, normal color. Absent: rash Course Vital Signs 07/21/21 07/21/21 07/21/21 01:30 01:32 02:03 Temperature 97.6 F Pulse Rate 98 98 97 Respiratory 22 20 22 Rate Blood Pressure 69/28 131/96 65/34 O2 Sat by Pulse 90 L 90 L 90 L Oximetry 07/21/21 07/21/21 07/21/21 02:31 04:13 05:17 Temperature Pulse Rate 93 84 89 Respiratory 20 20 18 Rate Blood Pressure 143/73 55/44 70/37 O2 Sat by Pulse 100 99 98 Oximetry 07/21/21 07/21/21 05:48 06:54 Temperature Pulse Rate 89 92 Respiratory 17 19 Rate Blood Pressure 76/41 78/23 O2 Sat by Pulse 98 98 Oximetry - Reevaluation(s) Reevaluation #1: 07/21/21 07:06 Patient is 71-year-old woman admitted with sepsis, suspected pneumonia. Patient also dehydrated with acute renal failure, lactic acidosis, elevated troponin. I discussed case with the patient's son who is at the bedside and he states that she would desire to being no code. She would not want CPR or machine life- support. Also discussed patient's hypotension and he states that she would not want to have a central line, though he is okay with running pressor through a peripheral line. Medical Decision Making - Lab Data Result diagrams: 07/21/21 01:57 07/21/21 04:30 Lab Results 07/21/21 07/21/21 07/21/21 Range/Units 01:57 01:57 01:57 WBC 8.9 (3.8-10.6) k/uL RBC 5.29 (3.80-5.40) m/uL Hgb 16.1 H (11.4-16.0) gm/dL Hct 52.4 H (34.0-46.0) % MCV 99.1 (80.0-100.0) fL MCH 30.4 (25.0-35.0) pg MCHC 30.6 L (31.0-37.0) g/dL RDW 15.7 H (11.5-15.5) % Plt Count 107 L (150-450) k/uL MPV 8.5 Neutrophils % 90 % Lymphocytes % 3 % Monocytes % 5 % Eosinophils % 0 % Basophils % 0 % Neutrophils # 7.9 H (1.3-7.7) k/uL Lymphocytes # 0.3 L (1.0-4.8) k/uL Monocytes # 0.5 (0-1.0) k/uL Eosinophils # 0.0 (0-0.7) k/uL Basophils # 0.0 (0-0.2) k/uL Hypochromasia Marked Macrocytosis Slight PT 17.2 H (9.0-12.0) sec INR 1.7 H (<1.2) APTT 28.6 (22.0-30.0) sec Sodium (137-145) mmol/L Potassium (3.5-5.1) mmol/L Chloride [employer] Carbon Dioxide (22-30) mmol/L Anion Gap mmol/L BUN (7-17) mg/dL Creatinine (0.52-1.04) mg/dL Est GFR (CKD-EPI)AfAm (>60 ml/min/1.73 sqM) Est GFR (CKD-EPI)NonAf (>60 ml/min/1.73 sqM) Glucose (74-99) mg/dL Lactic Ac Sepsis Rflx Plasma Lactic Acid Ryan (0.7-2.0) mmol/L Calcium (8.4-10.2) mg/dL Total Bilirubin (0.2-1.3) mg/dL AST (14-36) U/L ALT (4-34) U/L Alkaline Phosphatase (38-126) U/L Troponin I (0.000-0.034) ng/mL NT-Pro-B Natriuret Pep pg/mL Total Protein (6.3-8.2) g/dL Albumin (3.5-5.0) g/dL Coronavirus (PCR) (Not Detectd) 07/21/21 07/21/21 07/21/21 Range/Units 01:57 02:37 02:39 WBC (3.8-10.6) k/uL RBC (3.80-5.40) m/uL Hgb (11.4-16.0) gm/dL Hct (34.0-46.0) % MCV (80.0-100.0) fL MCH (25.0-35.0) pg MCHC (31.0-37.0) g/dL RDW (11.5-15.5) % Plt Count (150-450) k/uL MPV Neutrophils % % Lymphocytes % % Monocytes % % Eosinophils % % Basophils % % Neutrophils # (1.3-7.7) k/uL Lymphocytes # (1.0-4.8) k/uL Monocytes # (0-1.0) k/uL Eosinophils # (0-0.7) k/uL Basophils # (0-0.2) k/uL Hypochromasia Macrocytosis PT (9.0-12.0) sec INR (<1.2) APTT (22.0-30.0) sec Sodium (137-145) mmol/L Potassium (3.5-5.1) mmol/L Chloride Carbon Dioxide (22-30) mmol/L Anion Gap mmol/L BUN (7-17) mg/dL Creatinine (0.52-1.04) mg/dL Est GFR (CKD-EPI)AfAm (>60 ml/min/1.73 sqM) Est GFR (CKD-EPI)NonAf (>60 ml/min/1.73 sqM) Glucose (74-99) mg/dL Lactic Ac Sepsis Rflx Y Plasma Lactic Acid Ryan 3.9 H* (0.7-2.0) mmol/L Calcium (8.4-10.2) mg/dL Total Bilirubin (0.2-1.3) mg/dL AST (14-36) U/L ALT (4-34) U/L Alkaline Phosphatase (38-126) U/L Troponin I (0.000-0.034) ng/mL NT-Pro-B Natriuret Pep 79658 pg/mL Total Protein (6.3-8.2) g/dL Albumin (3.5-5.0) g/dL Coronavirus (PCR) (Not Detectd) 07/21/21 07/21/21 07/21/21 Range/Units 03:21 04:30 04:30 WBC (3.8-10.6) k/uL RBC (3.80-5.40) m/uL Hgb (11.4-16.0) gm/dL Hct (34.0-46.0) % MCV (80.0-100.0) fL MCH (25.0-35.0) pg MCHC (31.0-37.0) g/dL RDW (11.5-15.5) % Plt Count (150-450) k/uL MPV Neutrophils % % Lymphocytes % % Monocytes % % Eosinophils % % Basophils % % Neutrophils # (1.3-7.7) k/uL Lymphocytes # (1.0-4.8) k/uL Monocytes # (0-1.0) k/uL Eosinophils # (0-0.7) k/uL Basophils # (0-0.2) k/uL Hypochromasia Macrocytosis PT (9.0-12.0) sec INR (<1.2) APTT (22.0-30.0) sec Sodium 142 (137-145) mmol/L Potassium 5.3 H (3.5-5.1) mmol/L Chloride 108 H Carbon Dioxide 19 L (22-30) mmol/L Anion Gap 15 mmol/L BUN 76 H (7-17) mg/dL Creatinine 5.59 H (0.52-1.04) mg/dL Est GFR (CKD-EPI)AfAm 8 (>60 ml/min/1.73 sqM) Est GFR (CKD-EPI)NonAf 7 (>60 ml/min/1.73 sqM) Glucose 86 (74-99) mg/dL Lactic Ac Sepsis Rflx Plasma Lactic Acid Ryan (0.7-2.0) mmol/L Calcium 8.4 (8.4-10.2) mg/dL Total Bilirubin 3.0 H (0.2-1.3) mg/dL AST 31 (14-36) U/L ALT 14 (4-34) U/L Alkaline Phosphatase 80 (38-126) U/L Troponin I 0.441 H* (0.000-0.034) ng/mL NT-Pro-B Natriuret Pep pg/mL Total Protein 7.0 (6.3-8.2) g/dL Albumin 2.9 L (3.5-5.0) g/dL Coronavirus (PCR) Not Detected (Not Detectd) - EKG Data -: EKG Interpreted by Vt EKG shows normal: sinus rhythm (With PACs), axis (Right axis deviation), intervals (Prolonged QT), QRS complexes (Incomplete right bundle branch block.) Rate: normal (Rate 97 bpm) Disposition Clinical Impression: Pneumonia, Sepsis, Acute kidney failure, Elevated troponin I level, Lactic acidosis Disposition: ADMITTED IP TO THIS HOSP Condition: Serious Referrals: Mellissa Carolina MD [Primary Care Provider] - 1-2 days
[2021-07-21 05:01] LABS: Albumin 2.9 g/dL (3.5-5.0); Calcium 8.4 mg/dL (8.4-10.2); Potassium 5.3 mmol/L (3.5-5.1)
[2021-07-21] MEDS: NOREPINEPHRINE 4 MG in SODIUM CHLORIDE 0.9% 250 ML IV ONE ×2 (05:08→09:44)
[2021-07-21] MEDS: SODIUM CHLORIDE 0.9% 1,000 ML IV SCH ×3 (05:47→18:13)
[2021-07-21] MEDS ORDERED: ACETAMINOPHEN TAB 325 MG TAB PO PRN (06:24)
[2021-07-21] MEDS ORDERED: MORPHINE SULFATE 4 MG/ML SYRINGE IV PRN (06:24)
[2021-07-21] MEDS ORDERED: NALOXONE 0.4 MG/ML 1 ML VIAL IV PRN (06:24)
[2021-07-21] MEDS ORDERED: PIPERACILLIN-TAZOBACTAM 3.375 GM in SODIUM CHLORIDE 0.9% 100 ML IVPB SCH (08:00)
[2021-07-21] MEDS ORDERED: AZITHROMYCIN 500 MG in SODIUM CHLORIDE 0.9% 250 ML IVPB SCH (09:00)
[2021-07-21] MEDS ORDERED: HEPARIN SODIUM,PORCINE/PF 5,000 UNIT/0.5 ML SYRINGE SQ SCH (09:00)
[2021-07-21] MEDS ORDERED: FAMOTIDINE 20 MG/2 ML VIAL IV SCH (09:00)
[2021-07-21] MEDS ORDERED: MORPHINE SULFATE 2 MG/ML SYRINGE IV PRN (09:26)
[2021-07-21] MEDS ORDERED: ATROPINE OPHTH SOLN 1% 5ML BTL SUBLINGUAL PRN (09:26)
[2021-07-21] MEDS ORDERED: SCOPOLAMINE 1.5MG/72HR PATCH TRANSDERM SCH (09:30)
--- NOTE | 2021-07-21 09:57 | P.CNPUL ---
History of Present Illness Consult date: 07/21/21 Requesting physician: Austin Harrison Reason for consult: other (Critical care management) Chief complaint: Altered mental status History of present illness: This is a 71-year-old female patient who has a history of lung cancer with previous left-sided pneumonectomy, hypertension, former smoker, COPD. 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 Carolina in the past. She was last in our office in 2018. Her last computed tomography scan of the chest here was in 2018. She was brought into the emergency room early this morning for altered mental status and delirium. Her son had stated she was complaining of a sore throat and cough about a week ago that seemed to be progressively worse. She was disoriented and confused. DT scan of the brain revealed no acute intracranial process. Chest x-ray reveals diffuse right-sided pulmonary infiltrate/fibrosis. Left lung pneumonectomy. White count 8.9. Hemoglobin 16.1. Platelets 107. INR 1.7. Sodium 142. Potassium 5.3. Bicarb 19. Creatinine 5.59. BUN 76. Initial lactic acid 3.9. ProBNP 18,200. Troponin 0.44, 0.42. Booker virus not detected. Echocardiogram is pending. Does have a loud harsh murmur. She is afebrile. Hypotensive. Tachycardic. Requiring 5 L high flow nasal cannula to maintain O2 saturations in the 90s. She is seen this morning in the intensive care unit. She is minimal the responsive. Only moans. She does not respond to loud verbal stimuli. Does not respond to painful stimuli. She is currently on norepinephrine at 0.25 mcg/kg/m. 0.9 normal saying it 130 ML's per hour. She's been initiated on Zosyn, ceftriaxone, azithromycin. She does have a stage IV decubitus ulcer on her coccyx. Currently in sinus rhythm with PACs. She has been made a DO NOT RESUSCITATE/DO NOT INTUBATE CODE STATUS per her son and [id number] who are present. Review of Systems ROS unobtainable: due to mental status Past Medical History Past Medical History: Asthma, COPD, Hypertension History of Any Multi-Drug Resistant Organisms: None Reported Additional Past Surgical History / Comment(s): Left lung removal, cataract surgery Past Anesthesia/Blood Transfusion Reactions: No Reported Reaction Past Psychological History: No Psychological Hx Reported Smoking Status: Unknown if ever smoked Past Alcohol Use History: None Reported Past Drug Use History: None Reported - Past Family History Father Family Medical History: Hypertension Additional Family Medical History / Comment(s): pt states father had heart problems but unsure of what exactly, ETOH, cirrhosis Mother Family Medical History: Hypertension Medications and Allergies Home Medications Medication Instructions Recorded Confirmed Type Albuterol Inhaler [Ventolin Hfa 2 puff INHALATION RT-Q4H PRN 07/21/21 07/21/21 History Inhaler] Cholecalciferol [Vitamin D3 (125 125 mcg PO DAILY 07/21/21 07/21/21 History Mcg = 5000 Iu)] Metoprolol Succinate [Toprol XL] 25 mg PO DAILY 07/21/21 07/21/21 History Potassium Gluconate [Potassium 99 mg PO DAILY 07/21/21 07/21/21 History Gluconate ER] Spironolactone 25 mg PO DAILY 07/21/21 07/21/21 History lisinopriL [Zestril] 20 mg PO DAILY 07/21/21 07/21/21 History Allergies Allergy/AdvReac Type Severity Reaction Status Date / Time No Known Allergies Allergy Verified 07/21/21 09:05 Physical Exam Vitals: Vital Signs Temp Pulse Resp BP Pulse Ox 07/21/21 09:15 105 H 15 102/64 07/21/21 09:00 101 H 16 69/45 96 07/21/21 08:45 151 H 18 110/77 84 L 07/21/21 08:30 101 H 18 85/39 80 L 07/21/21 08:15 109 H 18 113/79 07/21/21 08:00 104 H 22 81/42 07/21/21 07:55 149 H 14 07/21/21 07:36 93 82/43 07/21/21 07:33 92 72/38 07/21/21 06:54 92 19 78/23 98 07/21/21 05:48 89 17 76/41 98 07/21/21 05:17 89 18 70/37 98 07/21/21 04:13 84 20 55/44 99 07/21/21 02:31 93 20 143/73 100 07/21/21 02:03 97 22 65/34 90 L 07/21/21 01:32 97.6 F 98 20 131/96 90 L 07/21/21 01:30 98 22 69/28 90 L Intake and Output 07/20/21 07/21/21 07/21/21 22:59 06:59 14:59 Intake Total 46.833 290.877 Output Total 15 Balance 46.833 275.877 Intake: IV 260 Sodium Chloride 0.9% 1, 260 000 ml @ 130 mls/hr IV . [id number] Rx#:[id number] Intake, IV Titration 46.833 30.877 Amount Norepinephrine 4 mg In 46.833 30.877 Sodium Chloride 0.9% 250 ml @ 0.05 MCG/KG/MIN 17. 282 mls/hr IV .[id number] ONE Rx#:[id number] Output: Urine 15 Other: Weight 90.718 kg GENERAL EXAM: Obtunded, unresponsive 71-year-old -[place] female, on 5 L nasal cannula. HEAD: Normocephalic. EYES: Normal reaction of pupils, equal size. NOSE: Clear with pink turbinates. THROAT: No erythema or exudates. NECK: No masses, significant JVD. CHEST: No chest wall deformity. LUNGS: Equal air entry with hoarse crackles over the right lung. CVS: S1 and S2 normal with an audible murmur, regular rhythm. ABDOMEN: No hepatosplenomegaly, normal bowel sounds, no guarding or rigidity. SPINE: No scoliosis or deformity SKIN: Stage IV decubitus ulcer on the coccyx CENTRAL NERVOUS SYSTEM: Unable to assess, tone is normal in all 4 extremities. EXTREMITIES: There is no peripheral edema. No clubbing, no cyanosis. Peripheral pulses are intact. Results - Laboratory Findings CBC and BMP: 07/21/21 01:57 07/21/21 04:30 PT/INR, D-dimer PT 17.2 sec (9.0-12.0) H 07/21/21 01:57 INR 1.7 (<1.2) H 07/21/21 01:57 Abnormal lab findings: Abnormal Labs 07/21/21 07/21/21 07/21/21 01:57 01:57 01:57 Hgb 16.1 H Hct 52.4 H MCHC 30.6 L RDW 15.7 H Plt Count 107 L Neutrophils # 7.9 H Lymphocytes # 0.3 L PT 17.2 H INR 1.7 H Potassium Chloride Carbon Dioxide BUN Creatinine Plasma Lactic Acid Ryan 3.9 H* Total Bilirubin Troponin I Albumin 07/21/21 07/21/21 07/21/21 04:30 04:30 07:15 Hgb Hct MCHC RDW Plt Count Neutrophils # Lymphocytes # PT INR Potassium 5.3 H Chloride 108 H Carbon Dioxide 19 L BUN 76 H Creatinine 5.59 H Plasma Lactic Acid Ryan Total Bilirubin 3.0 H Troponin I 0.441 H* 0.426 H* Albumin 2.9 L - Diagnostic Findings Chest x-ray: image reviewed Assessment and Plan Assessment: 1 Acute altered mental status suspect secondary to acute sepsis. Stage IV decubitus ulcer on the coccyx, suspect possible urinary tract infection 2 Septic shock with hypotension requiring pressor support 3 Acute renal failure with current creatinine 5.59 4 Lactic acidosis 5 Troponin leak 6 Valvular heart disease, suspect wide-open MR, echocardiogram pending 7 History of lung cancer with previous left pneumonectomy 8 Pulmonary fibrosis of the right lung 9 Chronic obstructive pulmonary disease 10 Former smoker 11 History of hypertension Plan: The patient was seen and evaluated by Dr. Carolina Add a bicarb drip at 50 MLS per hour Overall prognosis remains quite poor He did speak to the patient's son and [id number] They are considering comfort care In the interim, we'll continue with full supportive care for now DO NOT RESUSCITATE/DO NOT INTUBATE CODE STATUS We will continue to follow and make further recommendations based on her clinica l status I, the cosigning physician, performed a history & physical examination of the patient. Lungs sounds worse crackles over the right lung. Maintaining good O2 saturations in the 90s on 5 L/m per nasal cannula. I discussed the assessment and plan of care with my nurse practitioner, Lily Gross. I attest to the above consultation dictated by her. Time with Patient: Greater than 30
[2021-07-21] MEDS: MORPHINE SULFATE (100 MG/2 ML) 100 MG in SODIUM CHLORIDE 0.9% 100 ML IV SCH (11:30)
--- NOTE | 2021-07-21 12:00 | ECHOF ---
Referral Reason:hypotension MEASUREMENTS -------- HEIGHT: 165.1 cm WEIGHT: 90.7 kg BP: RVIDd: 5.5 cm (< 3.3) IVSd: 1.2 cm (0.6 - 1.1) LVIDd: 2.8 cm (3.9 - 5.3) LVPWd: 1.3 cm (0.6 - 1.1) IVSs: 1.7 cm LVIDs: 1.5 cm LVPWs: 1.5 cm Ao Diam: 2.6 cm (2.0 - 3.7) AV Cusp: 1.8 cm (1.5 - 2.6) LA Diam: 2.5 cm (2.7 - 3.8) MV EXCURSION: 16.312 mm (> 18.000) MV EF SLOPE: 49 mm/s (70 - 150) EPSS: 0.5 cm RAP: 5.00 mmHg RVSP: 53.01 mmHg FINDINGS -------- This was a technically adequate study. The left ventricular size is normal. There is mild concentric left ventricular hypertrophy. Overa ll left ventricular systolic function is normal with, an EF between 55 - 60 %. There is paradoxical /dysynergic septal motion consistent with right ventricular volume overload and/or elevated right effie tricular end-diastolic pressure. The right ventricle is severely enlarged. The left atrial size is normal. The right atrial size is normal. The aortic valve is trileaflet and appears structurally normal. The mitral valve is normal. Mild mitral regurgitation is present. The tricuspid valve appears structurally normal. Severe tricuspid regurgitation present. There is moderate pulmonary hypertension. The right ventricular systolic pressure, as measured by Doppler, is 53.01mmHg. There is no pulmonic regurgitation present. The aortic root size is normal. IVC Not well visulized. There is a trivial pericardial effusion present. CONCLUSIONS -------- 1. The left ventricular size is normal. 2. There is mild concentric left ventricular hypertrophy. 3. Overall left ventricular systolic function is normal with, an EF between 55 - 60 %. 4. There is paradoxical/dysynergic septal motion consistent with right ventricular volume overload an d/or elevated right ventricular end-diastolic pressure. 5. The right ventricle is severely enlarged. 6. Mild mitral regurgitation is present. 7. Severe tricuspid regurgitation present. 8. There is moderate pulmonary hypertension. 9. The right ventricular systolic pressure, as measured by Doppler, is 53.01mmHg. 10. There is a trivial pericardial effusion present. [employer]BE [employer]ER AND CUTTER OPERATOR: Jojo Mendez RDCS
[2021-07-21 18:13] VITALS: BP 57/32
--- NOTE | 2021-07-21 18:45 | P.HPIM ---
History of Present Illness This is a pleasant 71 years old -Citizen Of [place] female with past medical history of Asthma, COPD, Hypertension, s/p Left lung removal, cataract surgery Patient could not provide information. Information was taken from the son at [facility] [place] and daughter at bedside Patient was not feeling well for about one week with sore throats but she was resistant to come to the hospital, she got worse over the last 2 days where she got more confused and currently she is obtunded and unresponsive. She has evidence of right ventricular strain with her right side pulmonary fibrosis, she is status post left lung removal about 20 years secondary to cancer. I talked to the son at bedside and he confirmed to me she is DO NOT RESUSCITATE, DO NOT INTUBATE On the presentation patient was hypotensive 69/28, she was saturating 90% on 46 L of oxygen, afebrile. Currently she is saturating 98% on 5 L oxygen via nasal cannula with blood pressure 78/23 Labs reviewed, WBC 8.9K, hemoglobin 16.1, platelets 107 INR is elevated 1.7 Potassium 5.3, creatinine elevated 5.5, baseline is 0.8 Elevated lactic acid 3.9, liver enzymes not elevated. Troponin elevated 0.44. ProBNP 18,[address] of the brain: No acute process. EKG: Normal sinus rhythm at 97 with incomplete right bundle branch block. QTC is 490. Chest x-ray: Diffuse right-sided pulmonary infiltrate appears not significantly different than old exam. There is probably a significant component of pulmonary fibrosis Review of Systems CONSTITUTIONAL: No fever, no malaise, no fatigue. HEENT: No recent visual problems or hearing problems. Denied any sore throat. CARDIOVASCULAR: No orthopnea, PND, no palpitations, no syncope. PULMONARY: No shortness of breath, no cough, no hemoptysis. GASTROINTESTINAL: No diarrhea, no nausea, no vomiting, no abdominal pain. Normoactive bowel sounds. NEUROLOGICAL: No headaches, no weakness, no numbness. HEMATOLOGICAL: Denies any bleeding or petechiae. GENITOURINARY: Denies any burning micturition, frequency, or urgency. MUSCULOSKELETAL/RHEUMATOLOGICAL: Denies any joint pain, swelling, or any muscle pain. ENDOCRINE: Denies any polyuria or polydipsia. Past Medical History Past Medical History: Asthma, COPD, Hypertension History of Any Multi-Drug Resistant Organisms: None Reported Additional Past Surgical History / Comment(s): Left lung removal, cataract surgery Past Anesthesia/Blood Transfusion Reactions: No Reported Reaction Past Psychological History: No Psychological Hx Reported Smoking Status: Unknown if ever smoked Past Alcohol Use History: None Reported Past Drug Use History: None Reported - Past Family History Father Family Medical History: Hypertension Additional Family Medical History / Comment(s): pt states father had heart problems but unsure of what exactly, ETOH, cirrhosis Mother Family Medical History: Hypertension Medications and Allergies Home Medications Medication Instructions Recorded Confirmed Type Albuterol Inhaler [Ventolin Hfa 2 puff INHALATION RT-Q4H PRN 07/21/21 07/21/21 History Inhaler] Cholecalciferol [Vitamin D3 (125 125 mcg PO DAILY 07/21/21 07/21/21 History Mcg = 5000 Iu)] Metoprolol Succinate [Toprol XL] 25 mg PO DAILY 07/21/21 07/21/21 History Potassium Gluconate [Potassium 99 mg PO DAILY 07/21/21 07/21/21 History Gluconate ER] Spironolactone 25 mg PO DAILY 07/21/21 07/21/21 History lisinopriL [Zestril] 20 mg PO DAILY 07/21/21 07/21/21 History Allergies Allergy/AdvReac Type Severity Reaction Status Date / Time No Known Allergies Allergy Verified 07/21/21 09:05 Physical Exam Vitals: Vital Signs Temp Pulse Resp BP Pulse Ox 07/21/21 06:54 92 19 78/23 98 07/21/21 05:48 89 17 76/41 98 07/21/21 05:17 89 18 70/37 98 07/21/21 04:13 84 20 55/44 99 07/21/21 02:31 93 20 143/73 100 07/21/21 02:03 97 22 65/34 90 L 07/21/21 01:32 97.6 F 98 20 131/96 90 L 07/21/21 01:30 98 22 69/28 90 L Intake and Output 07/20/21 07/21/21 07/21/21 22:59 06:59 14:59 Intake Total 46.833 Balance 46.833 Intake: Intake, IV Titration 46.833 Amount Norepinephrine 4 mg In 46.833 Sodium Chloride 0.9% 250 ml @ 0.05 MCG/KG/MIN 17. 282 mls/hr IV .[id number] ONE Rx#:[id number] Other: Weight 90.718 kg -GENERAL: The patient is confused and delirious, not in any acute distress. Well developed, well nourished. HEENT: Pupils are round and equally reacting to light. EOMI. No scleral icterus. No conjunctival pallor. Normocephalic, atraumatic. No pharyngeal erythema. No thyromegaly. CARDIOVASCULAR: S1 and S2 present. No murmurs, rubs, or gallops. -PULMONARY: Chest is clear to auscultation, no wheezing or crackles. No breath sounds on the left side. The dictation on the right side ABDOMEN: Soft, nontender, nondistended, normoactive bowel sounds. No palpable organomegaly. MUSCULOSKELETAL: No joint swelling or deformity. -EXTREMITIES: No cyanosis, clubbing, 2+ bilateral pitting leg edema NEUROLOGICAL: Gross neurological examination did not reveal any focal deficits. SKIN: No rashes. No petechiae Results CBC & Chem 7: 07/21/21 01:57 07/21/21 04:30 Labs: Abnormal Lab Results - Last 24 Hours (Table) 07/21/21 07/21/21 07/21/21 Range/Units 01:57 01:57 01:57 Hgb 16.1 H (11.4-16.0) gm/dL Hct 52.4 H (34.0-46.0) % MCHC 30.6 L (31.0-37.0) g/dL RDW 15.7 H (11.5-15.5) % Plt Count 107 L (150-450) k/uL Neutrophils # 7.9 H (1.3-7.7) k/uL Lymphocytes # 0.3 L (1.0-4.8) k/uL PT 17.2 H (9.0-12.0) sec INR 1.7 H (<1.2) Potassium (3.5-5.1) mmol/L Chloride (98-107) mmol/L Carbon Dioxide (22-30) mmol/L BUN (7-17) mg/dL Creatinine (0.52-1.04) mg/dL Plasma Lactic Acid Ryan 3.9 H* (0.7-2.0) mmol/L Total Bilirubin (0.2-1.3) mg/dL Troponin I (0.000-0.034) ng/mL Albumin (3.5-5.0) g/dL 07/21/21 07/21/21 Range/Units 04:30 04:30 Hgb (11.4-16.0) gm/dL Hct (34.0-46.0) % MCHC (31.0-37.0) g/dL RDW (11.5-15.5) % Plt Count (150-450) k/uL Neutrophils # (1.3-7.7) k/uL Lymphocytes # (1.0-4.8) k/uL PT (9.0-12.0) sec INR (<1.2) Potassium 5.3 H (3.5-5.1) mmol/L Chloride 108 H (98-107) mmol/L Carbon Dioxide 19 L (22-30) mmol/L BUN 76 H (7-17) mg/dL Creatinine 5.59 H (0.52-1.04) mg/dL Plasma Lactic Acid Ryan (0.7-2.0) mmol/L Total Bilirubin 3.0 H (0.2-1.3) mg/dL Troponin I 0.441 H* (0.000-0.034) ng/mL Albumin 2.9 L (3.5-5.0) g/dL Assessment and Plan Assessment: Septic shock Possible right Community acquired pneumonia Acute kidney injury Elevated troponin Elevated lactic acid Thrombocytopenia History of hypertension History of asthma/COPD Status post left flank removal Plan: This is a pleasant 71 years old female who was admitted for septic shock, possible pneumonia, IMELDA Continue with antibiotic, currently with ceftriaxone and Zithromax Continue with pressors and levophed to support blood pressure Check echocardiogram Check urine analysis in the bladder scan Follow-up consult ends of the case, pulmonary/critical care, cardiology and nephrology Labs and medication were reviewed.. Continue same treatment. Continue with symptomatic treatment. Resume home medication. Monitor lytes and vitals. DVT and GI prophylaxis. Further recommendations depends on the clinical course of the patient DVT prophylaxis: Subcutaneous heparin GI Prophylaxis: Pepcid Prognosis is guarded
[2021-07-22 00:57] VITALS: PULSE 78
[2021-07-22] MEDS: MORPHINE SULFATE (100 MG/2 ML) 100 MG in SODIUM CHLORIDE 0.9% 100 ML IV SCH (04:52)
[2021-07-22 08:04] VITALS: RESP 8
--- NOTE | 2021-07-23 00:27 | P.DS ---
Providers Date of admission: 07/21/21 06:24 Attending physician: Wanda Suarez Consults: 07/21/21 06:26 Consult Physician Routine Consulting Provider: Mellissa Carolina Consult Reason/Comments: Sepsis. Suspected pneumonia Do you want consulting provider notified?: Yes Consult Physician Routine Consulting Provider: Shania Lopez Consult Reason/Comments: Acute kidney failure Do you want consulting provider notified?: Yes 07/21/21 07:04 Consult Physician Routine Consulting Provider: Talib Malin Consult Reason/Comments: elevated troponin Do you want consulting provider notified?: Yes Primary care physician: Mellissa Carolina Hospital Course: Diagnoses: End of life care, comfort care per family request Septic shock Possible right Community acquired pneumonia Acute kidney injury Elevated troponin Elevated lactic acid Thrombocytopenia History of hypertension History of asthma/COPD Status post left flank removal Hospital course: This is a pleasant 71 years old -[place] female with past medical hi story of Asthma, COPD, Hypertension, s/p Left lung removal, cataract surgery Patient could not provide information. Information was taken from the son at bedside and daughter at bedside Patient was not feeling well for about one week with sore throats but she was resistant to come to the hospital, she got worse over the last 2 days where she got more confused and currently she is obtunded and unresponsive. She has evidence of right ventricular strain with her right side pulmonary fibrosis, she is status post left lung removal about 20 years secondary to cancer. I talked to the son at bedside and he confirmed to me she is DO NOT RESUSCITATE, DO NOT INTUBATE on admission she was hypotensive and hypoxic. Chest x-ray: Diffuse right-sided pulmonary infiltrate appears not significantly different than old exam. There is probably a significant component of pulmonary fibrosis Later on family decided to make the patient comfort care Today I saw the patient in the ICU she was attended, not in distress. Son and bedside and he agrees she is looks comfortable Shortly after that patient , please refer to nursing note for more details Physical exam prior to expiration Gen: patient is obtunded and unresponsive, comfortable, not in distress CVS: S1-S2, RRR, no murmur Lungs: Bpsychiatric site, multiple crepitation on the right side Abdomen: soft, no distention, no tenderness, positive bowel sounds Extremity: n bilateral pitting leg edema justin. No induration Time spent more than 35 minutes Patient Condition at Discharge: Serious Plan - Discharge Summary New Discharge Prescriptions: No Action Metoprolol Succinate [Toprol XL] 25 mg PO DAILY Cholecalciferol [Vitamin D3 (125 Mcg = 5000 Iu)] 125 mcg PO DAILY Potassium Gluconate [Potassium Gluconate ER] 99 mg PO DAILY lisinopriL [Zestril] 20 mg PO DAILY Spironolactone 25 mg PO DAILY Albuterol Inhaler [Ventolin Hfa Inhaler] 2 puff INHALATION RT-Q4H PRN PRN Reason: Shortness Of Breath Discharge Medication List Albuterol Inhaler [Ventolin Hfa Inhaler] 2 puff INHALATION RT-Q4H PRN 07/21/21 [History] Cholecalciferol [Vitamin D3 (125 Mcg = 5000 Iu)] 125 mcg PO DAILY 07/21/21 [History] Metoprolol Succinate [Toprol XL] 25 mg PO DAILY 07/21/21 [History] Potassium Gluconate [Potassium Gluconate ER] 99 mg PO DAILY 07/21/21 [History] Spironolactone 25 mg PO DAILY 07/21/21 [History] lisinopriL [Zestril] 20 mg PO DAILY 07/21/21 [History] Follow up Appointment(s)/Referral(s): Mellissa Carolina MD [Primary Care Provider] - 1-2 days Discharge Disposition: - Preliminary Cause of Preliminary Cause of : septic shock
--- NOTE | 2021-07-26 13:25 | CDI ---
Documentation Clarification Form Mortality Review Date: 07/26/2021 01:13:06 PM From: Katrin Triana RN, CCDS Admit Date: 07/21/2021 06:24:00 AM Patient Name: Lindsay Choudhary Visit Number: [id number] Discharge Date: 07/22/2021 08:30:00 AM ATTENTION: The Clinical Documentation Specialists (CDI) and [facility] Coding Staff appreciate your assistance in clarifying documentation. Please respond to the clarification below the line at the bottom and electronically sign. The CDI & [facility] Coding staff will review the response and follow-up if needed. Please note: Queries are made part of the Legal Health Record. If you have any questions, please contact the author of this message via ITS. Dr. Avila E Sheet Your patient is noted to have above average O2 consumption for a patient that does not have home O2. Based on this information and the findings below, is there an additional diagnosis that is clinically appropriate for this patient? History/Risk Factors: COPD, HTN, Asthma, Lung CA with Left pneumonectomy 20 Yrs. ago Tobacco use: None documented Home oxygen: none Clinical Indicators: 07/21 ED Note: "Chief Complaint: Shortness of Breath. Review of Systems: Respiratory: Reports: cough, dyspnea." Vital signs & Pulse oximetry: 07/21 0130 on admission RR 22, 90% on 6L NC 07/21 0830 HR 101, RR 18, B/P 85/39, Spo2 80% on 5L NC 07/21 Pulmonary Lung/Breathing assessment: "LUNGS: Equal air entry with hoarse crackles over the right lung." ABG/CBG: not done Treatment: Breathing TX: none ordered Continuous Pulse ox: per unit protocol O2: maintained 4-6L NC Is there an additional diagnosis that is clinically appropriate for this patient? [ ] Acute Hypoxic Respiratory Failure (pO2 <60 mm Hg or SpO2 <91% on room air) [ ] Acute Hypercapnic Respiratory Failure (pCO2 >50 and pH <7.35) [ ] Acute on Chronic Respiratory Failure [ ] Other Diagnosis, please specify [ ] Unable to determine (Template Last Revised: October 2020) Acute Hypoxic Respiratory Failure MTDD
--- NOTE | 2021-07-26 13:47 | CDI ---
Documentation Clarification Form Mortality Review Date: 07/26/2021 01:34:23 PM From: Katrin Triana RN, CCDS Admit Date: 07/21/2021 06:24:00 AM Patient Name: Lindsay Choudhary Visit Number: [id number] Discharge Date: 07/22/2021 08:30:00 AM ATTENTION: The Clinical Documentation Specialists (CDI) and [facility] Coding Staff appreciate your assistance in clarifying documentation. Please respond to the clarification below the line at the bottom and electronically sign. The CDI & [facility] Coding staff will review the response and follow-up if needed. Please note: Queries are made part of the Legal Health Record. If you have any questions, please contact the author of this message via ITS. Dr. Harrison Your patient has the documented symptom of Altered Mental Status ED note and Pulmonary Consult on 07/21. Additional clarification regarding the etiology/cause of this symptom is requested. History/Risk Factors: Asthma, COPD, HTN, Lung CA with Left Lobectomy Clinical Indicators: 07/21 Pulmonary consult: "History of present illness: She was disoriented and confused. Acute altered mental status suspect secondary to acute sepsis." 07/21 Ed Note: "History of Present Illness : The patient's son states that she had started complaining of little bit of sore throat and cough about a week ago and has been seeming to be progressively more sick, also becoming disoriented and confused. This patient is 71-year-old woman brought here by and noticed to be evaluated for altered mental status, cough, sore throat." 07/21 & 07/22 H&P and D/C Summary: "Patient was not feeling well for about one week with sore throats but she was resistant to come to the hospital, she got worse over the last 2 days where she got more confused and currently she is obtunded and unresponsive." 07/21 Labs: K+ 5.3, BUN 76, Creatinine 5.59, Lactic Acid 3.9/2.6 07/21 CT Brain: Mild Atrophy Documented infectious Process: Sepsis with Septic shock, Pneumonia Documented Organ Dysfunction: Acute Renal Failure Treatment: IV Ceftriaxone 1gm IVPB OT IV Levophed Gtt titrate for B/P 1L IVF bolus 0.9% NS followed by 130 cc/hr. Please clarify the etiology of the symptom of Altered Mental Status: [ ] Metabolic Encephalopathy due to (specify cause of encephalopathy] [ ] Other condition (please specify) [ ] Unable to determine (Template Last Revised: October 2020) Unable to determine MTDD
== END 2021-07-22 08:30 | disposition expired | DRG 871 ==
LOC: EC 01:25 → 2SICU 06:24
PROVIDERS: ADMIT Hospitalist; ATTEND Hospitalist
PROC: 3E033XZ Introduction of Vasopressor into Peripheral Vein, Percutaneous Approach (ICD-10-PCS; principal; 2021-07-21)
DX: A41.9 Sepsis, unspecified organism (principal); L89.154 Pressure ulcer of sacral region, stage 4; J18.9 Pneumonia, unspecified organism; R65.21 Severe sepsis with septic shock; J96.01 Acute respiratory failure with hypoxia; N17.9 Acute kidney failure, unspecified; E87.2 Acidosis; J44.0 Chronic obstructive pulmonary disease with (acute) lower respiratory infection; R41.82 Altered mental status, unspecified; Z66 Do not resuscitate; Z51.5 Encounter for palliative care; E86.0 Dehydration; R77.8 Other specified abnormalities of plasma proteins; Z20.822 Contact with and (suspected) exposure to COVID-19; D69.6 Thrombocytopenia, unspecified; I10 Essential (primary) hypertension; I45.10 Unspecified right bundle-branch block; J84.10 Pulmonary fibrosis, unspecified; Z90.2 Acquired absence of lung [part of]; Z87.891 Personal history of nicotine dependence; Z85.118 Personal history of other malignant neoplasm of bronchus and lung; Z79.899 Other long term (current) drug therapy; Z98.49 Cataract extraction status, unspecified eye; Z82.49 Family history of ischemic heart disease and other diseases of the circulatory system; Z84.89 Family history of other specified conditions; Z98.890 Other specified postprocedural states
CPT/HCPCS: 70450; 71045; 80053; 83605; 83880; 84484; 85025; 85610; 85730; 87040; 87635; 93005; 93306; 96365; 99285